=== PATIENT | female | born 1955 | race American Indian/Alaskan Native ===

== ENCOUNTER 2021-07-16 11:04 | Emergency (ER) | payer BC ==
--- NOTE | 2021-07-16 12:25 | Emergency Department Report ---
ED General Adult HPI - General Chief complaint: Dyspnea/Respdistress Stated complaint: Shortness of breath. Chest wall pain. Malaise and fatigue. Positive Covid diagnosis PUI?: Yes Time Seen by Provider: 07/16/21 11:57 Source: patient Mode of arrival: Ambulatory Limitations: No Limitations - History of Present Illness Initial comments: The patient was evaluated in the emergency department for symptoms described in the history of present illness. He/she was evaluated in the context of the global COVID-19 pandemic, which necessitated consideration that the patient might be at risk for infection with the virus that causes COVID-19. Institutional protocols and algorithms that pertain to the evaluation of patients at risk for COVID-19 are in a state of rapid change based on information released by regulatory bodies including the CDC and federal and state organizations. These policies and algorithms were followed during the patient's care in the emergency department. Please note that these policies, procedures and recommendations changed on a rapid basis. During the history and physical examination, I had on complete personal protective equipment. The patient is a 66-year-old female. She is COVID-19 vaccinated. She had a positive Covid test 2 days ago. She reports developing Covid symptoms 7 or 8 days ago. Complains of cough, wheezing, chest wall pain, malaise and fatigue. Denies travel, surgery, immobilization, leg pain or leg swelling. She reports that she is taking Tylenol and Motrin at home for her physical pain. She also reports that she is feeling of malaise and weakness. She reports she is not able to get appointment with her outpatient primary care doctor "because I have Covid." She also reports sick contacts with similar symptoms. -: Gradual, days(s) Severity scale (0 -10): 5 Quality: aching Consistency: constant Improves with: rest Worsens with: movement - Related Data Previous Rx's Medication Instructions Recorded Last Taken Type Acetaminophen [Non-Aspirin Extra 650 mg PO Q6HR PRN #30 tablet 07/16/21 Unknown Rx Strength] Albuterol Sulfate [Proair 90 mcg IH Q4HR PRN #2 aer.[email or web address] 07/16/21 Unknown Rx Respiclick] Ibuprofen [Motrin] 600 mg PO Q8H PRN #30 tablet 07/16/21 Unknown Rx Allergies Allergy/AdvReac Type Severity Reaction Status Date / Time No Known Allergies Allergy Verified 12/24/21 12:33 ED Review of Systems ROS: Stated complaint: SOB/ COVID/ CP Other details as noted in HPI Constitutional: malaise, weakness Eyes: denies: eye discharge ENT: congestion Respiratory: cough, shortness of breath Cardiovascular: chest pain (Chest wall pain) Gastrointestinal: denies: vomiting Musculoskeletal: arthralgia, myalgia Neurological: headache, weakness ED Past Medical Hx - Past Medical History Hx Hypertension: Yes Hx Asthma: Yes - Surgical History Additional Surgical History: PARTIAL HYSTO/ C SECTION - Medications Home Medications: Home Medications Medication Instructions Recorded Confirmed Last Taken Type Acetaminophen [Non-Aspirin Extra 650 mg PO Q6HR PRN #30 tablet 07/16/21 Unknown Rx Strength] Albuterol Sulfate [Proair 90 mcg IH Q4HR PRN #2 aer.pow.ba 07/16/21 Unknown Rx Respiclick] Ibuprofen [Motrin] 600 mg PO Q8H PRN #30 tablet 07/16/21 Unknown Rx ED Physical Exam - General Limitations: No Limitations General appearance: alert, obese - Head Head exam: Present: atraumatic, normocephalic - Eye Eye exam: Present: normal appearance, EOMI. Absent: nystagmus - ENT ENT exam: Present: normal exam, normal orophraynx, mucous membranes moist, normal external ear exam - Neck Neck exam: Present: normal inspection, full ROM. Absent: tenderness, meningismus - Respiratory Respiratory exam: Present: chest wall tenderness, other (Pulmonary auscultation not performed secondary to lack of disposable stethoscope). Absent: respiratory distress, stridor - Cardiovascular Cardiovascular Exam: Present: regular rate (Seen on EKG), normal rhythm, other (Cardiac auscultation not performed secondary to lack of disposable stethoscope) - GI/Abdominal GI/Abdominal exam: Present: soft. Absent: distended, tenderness, guarding, rebound, rigid, pulsatile mass - Extremities Exam Extremities exam: Present: normal inspection, full ROM, other (2+ pulses noted in the bilateral upper and lower extremities. There is no palpable cord. negative Homans sign. Muscular compartments are soft. The pelvis is stable.). Absent: calf tenderness - Back Exam Back exam: Present: normal inspection, full ROM. Absent: tenderness, CVA tenderness (R), CVA tenderness (L), paraspinal tenderness, vertebral tenderness - Neurological Exam Neurological exam: Present: alert, oriented X3, normal gait, other (No facial droop. Tongue midline. Extraocular movements intact bilaterally. Facial sensation intact to light touch in V1, V2, V3 distribution bilaterally. 5 and a 5 strength in 4 extremities. Sensation intact to light touch in 4 extremities.). Absent: motor sensory deficit - Psychiatric Psychiatric exam: Present: normal affect, normal mood - Skin Skin exam: Present: warm, dry, intact, normal color. Absent: rash ED Course Vital Signs 07/16/21 11:12 Temperature 98.1 F Pulse Rate 100 H Respiratory 22 Rate Blood Pressure 138/85 [Right] O2 Sat by Pulse 100 Oximetry ED Medical Decision Making - Lab Data Vital Signs 07/16/21 11:12 Temperature 98.1 F Pulse Rate 100 H Respiratory 22 Rate Blood Pressure 138/85 [Right] O2 Sat by Pulse 100 Oximetry - EKG Data -: EKG Interpreted by De EKG shows normal: sinus rhythm - EKG Data When compared to previous EKG there are: previous EKG unavailable 07/16/21 13:57 The EKG is interpreted at 11: 26 Sinus rhythm, rate 97 bpm. Left axis deviation. Left anterior fascicular block. QTC 4 6 4 ms. Motion artifact. Normal P wave axis. Abnormal EKG. Not a STEMI. - Radiology Data Radiology results: pending, report reviewed, image reviewed XR chest routine 2V INDICATION / CLINICAL INFORMATION: chest wall pain covid. COMPARISON: None available. FINDINGS: SUPPORT DEVICES: None. HEART /PULMONARY VASCULATURE: No significant abnormality. LUNGS / PLEURA: There is no focal airspace consolidation. Lung volumes are diminished. No sizable pleural effusion. No pneumothorax. ADDITIONAL FINDINGS: No significant additional findings. IMPRESSION: 1. No acute findings. Signer Name: Michael Son MD Signed: 07/16/2021 12:15 PM Workstation Name: [id number] - Medical Decision Making Differential diagnosis, including but not limited to: Costochondritis, COVID-19 Assessment and plan: 66-year-old female, who was afebrile, with reassuring vital signs, who is not hypoxic, with resolved tachycardia, presenting on day 7/8 of Covid, with reproducible chest wall pain. Patient was given trial of ambulation by myself, while monitoring portable pulse oximeter, and O2 sat stayed between 95 and 100%. I counseled the patient on the natural history of COVID-19. She should follow-up with her outpatient primary care doctor, and I will refer her to an outpatient primary care center for second opinion if she so desires. Patient also counseled to purchase [id number] pulse oximeter to self monitor. We discussed the natural history of COVID-19. At this point in time, the patient does not meet criteria for admission hospitalization. Return precautions are reviewed. Critical care attestation.: If time is entered above; I have spent that time in minutes in the direct care of this critically ill patient, excluding procedure time. ED Disposition Clinical Impression: Chest wall pain, COVID-19 Disposition: HOME / SELF CARE / HOMELESS Is pt being admited?: No Does the pt Need Aspirin: No Condition: Good Instructions: COVID-19 Frequently Asked Questions, Chest Wall Pain, [id number] Additional Instructions: As we discussed, the patient experiencing natural history and expected symptoms of COVID-19 the symptoms of COVID will typically persist 10 to 14 days. There is no cure at this time for COVID. Please make certain to self isolate and self quarantine, follow-up with an outpatient primary care doctor within the next 3 to 5 days, wash hands with soap and water frequently, thoroughly and often, pa tient may take the prescribed medications as needed and directed. Advance diet and drink plenty of fluids as tolerated. Avoid interactions with the very elderly, very young, and those with chronic medical conditions. Return to the emergency room right away with new pain, worsening pain, migration of pain, projectile vomiting, change in mental status, confusion, inability to tolerate liquid feeds, new, worsened or different symptoms not present on the initial emergency room evaluation. We recommend that the patient purchase an [id number] pulse oximeter, and self monitor oxygen. If oxygen saturation goes below 90%, she should return to the emergency room right away. For the patient's convenience, local primary care doctors have been listed that she may follow-up as an outpatient, if unable to obtain outpatient appointment with her current primary care doctor. In addition, the patient may contact your insurance company, and discussed options for remote medical care/telemedicine Referrals: [facility] [Provider Group] - 7-10 days [facility] [Outside] - 7-10 days KEZIA GARVEY MD [Staff Physician] - 7-10 days
[2021-07-16] MEDS ORDERED: IBUPROFEN 400 MG TAB PO ONE (13:00)
[2021-07-16] MEDS ORDERED: ACETAMINOPHEN 325 MG TAB PO ONE (13:00)
--- NOTE | 2021-07-16 13:20 | XRay Report ---
XR chest routine 2V INDICATION / CLINICAL INFORMATION: chest wall pain covid. COMPARISON: None available. FINDINGS: SUPPORT DEVICES: None. HEART /PULMONARY VASCULATURE: No significant abnormality. LUNGS / PLEURA: There is no focal airspace consolidation. Lung volumes are diminished. No sizable ple ural effusion. No pneumothorax. ADDITIONAL FINDINGS: No significant additional findings. IMPRESSION: 1. No acute findings. Signer Name: Michael Son MD Signed: 07/16/2021 1:15 PM Workstation Name: [id number]
[2021-07-16 14:52] VITALS: BP 128/80
--- NOTE | 2021-07-19 10:39 | Electrocardiograph Report ---
[facility] Test Date: 2021-07-16 Test Time: 11:26:21 Pat Name: HORACIO SILVESTRE Department: Room: Gender: F House Repairer: KAI : 1955 Requested By: KEEGAN MARIEE Order Number: [id number] Reading MD: Mike Rubalcava Measurements Intervals [place] Rate: 97 P: 45 [place]: 163 QRS: -9 QRSD: 84 T: 27 QT: 365 QTc: 464 Interpretive Statements Sinus rhythm No previous ECG available for comparison Electronically Signed On 07-19-2021 10:39:15 EST by Mike Rubalcava
== END 2021-07-16 14:51 | disposition home or self-care (01) ==
LOC: ED 11:04
DX: U07.1 COVID-19 (principal); R07.89 Other chest pain; I10 Essential (primary) hypertension; J45.909 Unspecified asthma, uncomplicated
CPT/HCPCS: 71046; 93005; 99283